=== PATIENT | male | born 1965 | race Caucasian/White ===

== ENCOUNTER 2020-06-02 06:10 | Inpatient (IN) | payer BC ==
[~2020-06-02] VITALS: Ht 177.8 cm; Wt 92.9 kg
[~2020-06-02 06:10] MED LIST: DILT-102 PO; HYDR1TAB97 PO
[2020-06-02] MEDS ORDERED: MIDAZOLAM HCL 2MG/2ML 2ml VIAL (1mg/ml) ONE (07:19)
[2020-06-02] MEDS ORDERED: fentaNYL CITRATE 5 ML ONE (07:20)
[2020-06-02] MEDS ORDERED: ROCURONIUM 10MG/ML 10ML VIAL IV ONE (07:21)
[2020-06-02] MEDS ORDERED: PROPOFOL 10 MG/ML 20 ML IV ONE (07:21)
[2020-06-02] MEDS ORDERED: LIDOCAINE 2% (LOCAL ANESTH.) PF 5ml SDV ONE (07:21)
[2020-06-02] MEDS ORDERED: ROPIVACAINE 0.5% (5MG/ML) 20ML AMPULE IJ ONE ×2 (07:29→07:37)
[2020-06-02] MEDS ORDERED: ceFAZolin 1GM/50ML 100 ML IV ONE (07:31)
[2020-06-02] MEDS ORDERED: EPINEPHrine HCL 1 MG/1 ML AMP ONE ×3 (07:31→10:15)
[2020-06-02] MEDS ORDERED: TRANEXAMIC ACID 20 ML ONE (08:14)
[2020-06-02] MEDS ORDERED: HYDROmorphone HCL 2 MG/ML VL ONE (09:39)
[2020-06-02] MEDS ORDERED: MEPERIDINE HCL (25 MG/ML) 1ML VIAL ONE (11:16)
[2020-06-02] MEDS ORDERED: ACETAMINOPHEN 325 MG TAB PO PRN (11:30)
[2020-06-02] MEDS ORDERED: HYDROmorphone HCL 2 MG/ML VL IV PRN ×2 (11:30→12:00)
[2020-06-02] MEDS ORDERED: NITROGLYCERIN 0.4 MG SL TAB SL PRN (11:30)
[2020-06-02] MEDS ORDERED: LABETALOL HCL 5 MG/ML ML 20ML VIAL IV ONE (11:36)
[2020-06-02] MEDS ORDERED: METOPROLOL TARTRATE 1MG/1ML-5ML VIAL IV ONE (11:49)
[2020-06-02] MEDS ORDERED: MORPHINE SULFATE 4 MG/ML SYR/VIAL IV PRN (12:00)
[2020-06-02] MEDS ORDERED: ONDANSETRON HCL 4 MG/2 ML VIAL IV PRN (12:00)
[2020-06-02 13:00] VITALS: BP 179/107
[2020-06-02] MEDS: KETOROLAC TROMETH 30 MG/ML 1ML VIAL IV SCH ×3 (14:05→23:30)
[2020-06-02] MEDS: D5W/LACTATED RINGERS 1,000 ML IV SCH ×2 (14:05→21:30)
[2020-06-02 15:27] VITALS: BP 179/107
[2020-06-02 16:03] VITALS: BP 139/98
[2020-06-02] MEDS: SODIUM CHLOR 0.9% PF (SALINE LOCK) 10ML VIAL/SYR IV SCH ×2 (16:05→22:07)
[2020-06-02] MEDS: ceFAZolin 2 GM in D5W 5% 100 ML IV SCH ×2 (16:05→22:07)
[2020-06-02 17:00] VITALS: BP 139/98
[2020-06-02] MEDS: HYDROcodone-ACET 10/325MG TAB PO PRN (21:24)
[2020-06-02 22:00] VITALS: BP_SYST 128; BP_SYST 157; BP_DIAS 85; BP_DIAS 95
[2020-06-03] MEDS: HYDROcodone-ACET 10/325MG TAB PO PRN ×3 (01:33→12:31)
[2020-06-03 05:00] VITALS: BP 130/85
[2020-06-03] MEDS: SODIUM CHLOR 0.9% PF (SALINE LOCK) 10ML VIAL/SYR IV SCH ×2 (05:35→14:13)
[2020-06-03] MEDS: KETOROLAC TROMETH 30 MG/ML 1ML VIAL IV SCH ×2 (05:35→14:15)
[2020-06-03 09:00] VITALS: BP 144/81
[2020-06-03] MEDS ORDERED: RIVAROXABAN 10 MG TAB PO SCH (10:00)
[2020-06-03] MEDS: D5W/LACTATED RINGERS 1,000 ML IV SCH (12:29)
[2020-06-03 13:00] VITALS: BP 159/98
[2020-06-03 17:00] VITALS: BP 135/85
== END 2020-06-03 18:20 | disposition home or self-care (01) | DRG 489 ==
LOC: SUR 06:10 → UNDOADMOB 06:11 → OBSVTOIN 06:11 → OVERFLOW 06:11 → INTOOBSV 06:11 → OVERFLOW 11:53 → OBSVTOIN 11:53 → OVERFLOW 13:07 → CENTRAL 13:07 → TELE-CENTR 19:35 → CENTRAL 19:35 → UNDODISOB 06-03 18:20
PROVIDERS: ADMIT Orthopaedic Surgery; ATTEND Orthopaedic Surgery
PROC: 0SQD4ZZ Repair Left Knee Joint, Percutaneous Endoscopic Approach (ICD-10-PCS; 2020-06-02)
PROC: 0SBD4ZZ Excision of Left Knee Joint, Percutaneous Endoscopic Approach (ICD-10-PCS; 2020-06-02)
PROC: 0QSH04Z Reposition Left Tibia with Internal Fixation Device, Open Approach (ICD-10-PCS; principal; 2020-06-02 07:46)
DX: S82.142A Displaced bicondylar fracture of left tibia, initial encounter for closed fracture (principal); Z20.822 Contact with and (suspected) exposure to COVID-19; S83.242A Other tear of medial meniscus, current injury, left knee, initial encounter; S83.282A Other tear of lateral meniscus, current injury, left knee, initial encounter; S83.512A Sprain of anterior cruciate ligament of left knee, initial encounter; I10 Essential (primary) hypertension; X58.XXXA Exposure to other specified factors, initial encounter; Y93.89 Activity, other specified; Y92.89 Other specified places as the place of occurrence of the external cause; Y99.8 Other external cause status
CPT/HCPCS: 73562; 86850; 86900; 86901; 96365; 96366; 96375; 96376; G0378; J0171; J0690; J1885; J2001; J2250; J2704; J7060